=== PATIENT | female | born 1975 | race Asian ===

== ENCOUNTER 2021-04-28 06:13 | Inpatient (IN) | payer BC ==
[2021-04-26 15:47] LABS: BASOPHILS % 0.2 % (0.0-1.0); EOSINOPHILS % 0.2 % (0.0-6.0); HEMATOCRIT 39.2 % (34.2-44.1); HEMOGLOBIN 13.2 g/dL (12.0-16.0); LYMPHOCYTES % 38.7 % (18.0-39.1); MEAN CORPUSCULAR HEMOGLOBIN 29.5 pg (28-32); MEAN CORPUSCULAR HGB CONC 33.7 g/dL (31-35); MEAN CORPUSCULAR VOLUME 87.5 fL (81-99); MONOCYTES # (AUTO) 0.3 (0.2-0.8); MONOCYTES % 5.3 % (4.4-11.3); NEUTROPHILS # (AUTO) 2.8 (2.1-6.9); NEUTROPHILS % 55.4 % (38.7-80.0); PLATELET COUNT 200 x10e3/uL (140-360); RED BLOOD COUNT 4.48 x10e6/uL (3.6-5.1); RED CELL DISTRIBUTION WIDTH 12.1 % (11.7-14.4)
[2021-04-26 15:49] LABS: CLARITY,URINE CLEAR (CLEAR); COLOR,URINE YELLOW (YELLOW); KETONES,URINE NEGATIVE (NEGATIVE); LEUKOCYTE ESTERASE ,URINE NEGATIVE (NEGATIVE); NITRITE,URINE NEGATIVE (NEGATIVE); PROTEIN,URINE DIPSTICK NEGATIVE (NEGATIVE); URINE UROBILINOGEN 0.2 mg/dL (0.2 - 1)
[2021-04-26 16:29] LABS: HIV 1&2 AB SCREEN NON-REACTIVE (NONREACTIVE)
[~2021-04-28] VITALS: Ht 170.2 cm; Wt 67.1 kg
[~2021-04-28 06:13] MED LIST: AMLODIPINE BESYL5 MG PO; ARMOUR THYROID60 MG PO; VITAMIN B12 INJ
[2021-04-28] MEDS ORDERED: CLINDAMYCIN PHOS 900MG/ 50ML 50 ML IV ONE (07:54)
[2021-04-28] MEDS ORDERED: BUPIVACAINE LIPOSOME/PF 266 MG/20 ML IJ ONE (08:22)
[2021-04-28] MEDS ORDERED: IOPAMIDOL 300MG/ML 50ML INFUS..BTL IV ONE (10:00)
[2021-04-28 11:30] LABS: HEMATOCRIT 31.9 % (34.2-44.1); HEMOGLOBIN 10.8 g/dL (12.0-16.0)
[2021-04-28] MEDS ORDERED: ONDANSETRON HCL INJ 2MG/ML 2ML 2 MG/ML VIAL IV PRN (12:00)
[2021-04-28] MEDS ORDERED: HYDROMORPHONE 1MG/1ML INJ IV PRN (12:00)
[2021-04-28] MEDS: KETOROLAC TROMETHAMINE 30 MG/ML VIAL IV PRN ×2 (13:10→20:47)
[2021-04-28] MEDS: DEXTROSE 5%/LACTATED RINGERS 1,000 ML IV SCH ×3 (13:13→20:29)
[2021-04-28 13:40] VITALS: BP 100/61
[2021-04-28 13:58] VITALS: BP 100/61
[2021-04-28 14:00] VITALS: BP 100/61
[2021-04-28] MEDS: CLINDAMYCIN PHOS 900MG/ 50ML 50 ML IV SCH ×2 (14:51→23:05)
[2021-04-28 16:00] VITALS: BP 113/70
[2021-04-28 19:14] LABS: HEMATOCRIT 30.9 % (34.2-44.1); HEMOGLOBIN 10.5 g/dL (12.0-16.0)
[2021-04-28 20:00] VITALS: BP 109/53
[2021-04-29] VITALS (8 sets, daily range): BP systolic 99–122; BP diastolic 55–69
[2021-04-29] MEDS: DEXTROSE 5%/LACTATED RINGERS 1,000 ML IV SCH ×2 (03:15→04:48)
[2021-04-29] MEDS: KETOROLAC TROMETHAMINE 30 MG/ML VIAL IV PRN (04:49)
[2021-04-29 05:45] LABS: BASOPHILS % 0.1 % (0.0-1.0); HEMATOCRIT 27.1 % (34.2-44.1); HEMOGLOBIN 9.2 g/dL (12.0-16.0); LYMPHOCYTES # (AUTO) 1.3 (1.0-3.2); MEAN CORPUSCULAR HEMOGLOBIN 29.5 pg (28-32); MEAN CORPUSCULAR HGB CONC 33.9 g/dL (31-35); MEAN CORPUSCULAR VOLUME 86.9 fL (81-99); MONOCYTES # (AUTO) 0.4 (0.2-0.8); MONOCYTES % 6.2 % (4.4-11.3); NEUTROPHILS # (AUTO) 5.3 (2.1-6.9); NEUTROPHILS % 75.6 % (38.7-80.0); PLATELET COUNT 144 x10e3/uL (140-360); RED BLOOD COUNT 3.12 x10e6/uL (3.6-5.1); RED CELL DISTRIBUTION WIDTH 12.1 % (11.7-14.4)
[2021-04-29 05:58] LABS: ALBUMIN 2.9 g/dL (3.5-5.0); ALBUMIN/GLOBULIN RATIO 1.1 (0.8-2.0); ANION GAP 10.6 mmol/L (8-16); CREATININE, SERUM 0.78 mg/dL (0.57-1.11); POTASSIUM 3.6 mmol/L (3.5-5.1)
[2021-04-29] MEDS: CLINDAMYCIN PHOS 900MG/ 50ML 50 ML IV SCH ×3 (06:01→21:34)
[2021-04-29] MEDS: THYROID 60 MG TAB PO SCH (07:39)
[2021-04-29] MEDS: IRON-VITAMIN-MINERAL CAPSULE PO SCH ×2 (09:21→17:01)
[2021-04-29] MEDS: DOCUSATE SODIUM 100 MG CAP PO SCH ×2 (09:21→17:01)
[2021-04-29] MEDS: HYDROCODONE/APAP 5MG-325MG TAB PO PRN ×2 (11:48→18:43)
[2021-04-29] MEDS: IBUPROFEN 400 MG TAB PO PRN (21:34)
[2021-04-30] VITALS: BP 96/62
[2021-04-30 04:00] VITALS: BP 104/63
[2021-04-30 05:20] LABS: BASOPHILS % 0.2 % (0.0-1.0); EOSINOPHILS % 0.5 % (0.0-6.0); HEMATOCRIT 25.9 % (34.2-44.1); HEMOGLOBIN 8.8 g/dL (12.0-16.0); LYMPHOCYTES % 37.1 % (18.0-39.1); MEAN CORPUSCULAR VOLUME 88.4 fL (81-99); MONOCYTES # (AUTO) 0.3 (0.2-0.8); MONOCYTES % 5.6 % (4.4-11.3); NEUTROPHILS # (AUTO) 3.1 (2.1-6.9); NEUTROPHILS % 56.4 % (38.7-80.0); PLATELET COUNT 126 x10e3/uL (140-360); RED BLOOD COUNT 2.93 x10e6/uL (3.6-5.1); RED CELL DISTRIBUTION WIDTH 12.4 % (11.7-14.4)
[2021-04-30 05:55] LABS: ANION GAP 13.9 mmol/L (8-16); CALCIUM 7.7 mg/dL (8.4-10.2); CREATININE, SERUM 0.72 mg/dL (0.57-1.11); POTASSIUM 3.9 mmol/L (3.5-5.1)
[2021-04-30] MEDS: THYROID 60 MG TAB PO SCH (06:30)
[2021-04-30] MEDS: CLINDAMYCIN PHOS 900MG/ 50ML 50 ML IV SCH ×2 (06:30→15:01)
[2021-04-30 07:22] VITALS: BP 95/51
[2021-04-30 07:33] VITALS: BP 95/51
[2021-04-30] MEDS: IRON-VITAMIN-MINERAL CAPSULE PO SCH (08:16)
[2021-04-30] MEDS: DOCUSATE SODIUM 100 MG CAP PO SCH (08:16)
[2021-04-30] MEDS: IBUPROFEN 400 MG TAB PO PRN (08:17)
[2021-04-30] MEDS: HYDROCODONE/APAP 5MG-325MG TAB PO PRN (10:00)
[2021-04-30 10:59] VITALS: BP 106/54
[2021-04-30] MEDS: KETOROLAC TROMETHAMINE 30 MG/ML VIAL IV PRN (14:00)
[2021-04-30 15:42] VITALS: BP 104/65
[2021-04-30] MEDS ORDERED: ONDANSETRON HCL 4 MG ORAL DISINTEGRATING TAB PO PRN (16:00)
== END 2021-04-30 16:15 | disposition home or self-care (01) | DRG 742 ==
LOC: OR 06:13 → PACU V 11:50 → MED/SURG 12:33
PROVIDERS: ADMIT Specialist; ATTEND Specialist
PROC: 0W3R0ZZ Control Bleeding in Genitourinary Tract, Open Approach (ICD-10-PCS; 2021-04-28)
PROC: BT141ZZ Fluoroscopy of Kidneys, Ureters and Bladder using Low Osmolar Contrast (ICD-10-PCS; 2021-04-28)
PROC: 0UT90ZZ Resection of Uterus, Open Approach (ICD-10-PCS; principal; 2021-04-28 07:30)
PROC: 0UT70ZZ Resection of Bilateral Fallopian Tubes, Open Approach (ICD-10-PCS; 2021-04-28 07:30)
DX: N94.12 Deep dyspareunia (principal); N39.0 Urinary tract infection, site not specified; N99.61 Intraoperative hemorrhage and hematoma of a genitourinary system organ or structure complicating a genitourinary system procedure; E03.9 Hypothyroidism, unspecified; N72 Inflammatory disease of cervix uteri; N73.9 Female pelvic inflammatory disease, unspecified; N81.6 Rectocele; N32.81 Overactive bladder; R10.31 Right lower quadrant pain; N94.89 Other specified conditions associated with female genital organs and menstrual cycle; N32.3 Diverticulum of bladder; Z20.822 Contact with and (suspected) exposure to COVID-19; R10.2 Pelvic and perineal pain; D64.9 Anemia, unspecified
CPT/HCPCS: 36415; 74420; 80048; 80053; 81003; 84702; 85014; 85018; 85025; 86850; 86900; 87390; 88307; 93005; 96360; C1758; G0433; G0435; J1885; U0002

== ENCOUNTER → 2021-09-07 | Outpatient (CLI) | payer BC | LOC: US 13:53 | PROVIDERS: ATTEND Urology | DX: R31.21 Asymptomatic microscopic hematuria (principal) | CPT/HCPCS: 76770; 76857 ==

== ENCOUNTER → 2021-10-22 | Outpatient (CLI) | payer BC ==
[~2021-10-22] MED LIST changes: +FUROSEMIDE INJ 10 MG/ML 4 ML VIAL ONE
== END ==
LOC: NM 11:45
PROVIDERS: ATTEND Urology
DX: N13.30 Unspecified hydronephrosis (principal)
CPT/HCPCS: 78708; A9562; J1940

== ENCOUNTER → 2022-08-01 | Outpatient (CLI) | payer BC ==
[~2022-08-01] MED LIST changes: -FUROSEMIDE INJ 10 MG/ML 4 ML VIAL ONE
== END ==
LOC: CT 13:05
PROVIDERS: ATTEND Urology
DX: N23 Unspecified renal colic (principal); N13.30 Unspecified hydronephrosis
CPT/HCPCS: 74176